=== PATIENT | male | born 1990 | race Caucasian/White ===

== ENCOUNTER 2023-12-28 10:38 | Outpatient (AMB) | payer OTHER, SELFPAY ==
--- NOTE | 2023-12-28 10:59 | A.OFFPC_ITS ---
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 He was last seen by myself at [facility] over the winter and was noted to have a slightly elevated blood pressure, high cholesterol and prediabetes. He states since our last visit he has started intermittent fasting, reducing his alcohol intake and exercising. He states that he has lost about 10 lb. CV: Blood pressure today in the office is 114/84. He states that he is motivated to work out and lose weight. Denies any chest pain, shortness of breath or palpitations. Derm: He does note that on his right lower leg he has had a small, raised scab like lesion that has been there for about a year. It is nontender. He states that it just does not go away and he feels like he should get this checked out. He has also noticed that his scalp is dry and flaky and it has been like this on and off for years. He uses head and shoulders as needed. His did have a miscarriage yesterday at 8-9 weeks. He states that this has been a little stressful. They just started trying to have children. 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 1. Little interest or pleasure in doing things: not at all 2. Feeling down, depressed, or hopeless: not at all 3. Trouble falling or staying asleep, or sleeping too much: not at all 4. Feeling tired or having little energy: not at all 5. Poor appetite or overeating: not at all 6. Feeling bad about yourself - or that you are a failure or have let yourself or your family down: not at all 7. Trouble concentrating on things, such as reading the newspaper or watching television: not at all 8. Moving or speaking so slowly that other people could have noticed. Or the opposite - being so fidgety or restless that you have been moving around a lot more than usual: not at all 9. Thoughts that you would be better off or of hurting yourself in some way: not at all Total score: 0 Depression Screening Interpretation: Negative Depression Screening Done: Yes 63452 - PHQ-9 Billing: Yes Source: Developed by Drs. Carmelo Gann, Vale Freeman, Jose Alberto De Oliveira and colleagues, with an educational jay jay from [employer]. Thrive Questionnaire Date Thrive assessed: 12/28/23 I am a: Patient What is your living situation today?: I have a steady place to live Within the past 12 months, did the food you bought not last and you didn't have the money to get more?: Never true Within the past 12 months, did you worry whether your food would run out before you got money to buy more?: Never true Do you have trouble paying for medicines?: No Do you have trouble getting transportation to medical appointments?: No Do you have trouble paying your heating and electricity bill?: No Do you have trouble taking care of your child, family member or friend?: No Do you have trouble with day-to-day activities such as bathing, preparing meals, shopping, managing finances, etc.?: No Are you currently unemployed and looking for a job?: No Are you interested in more education?: No Please select the resources that you would like help with: None Currently or been in a relationship where the following occur: No concerns reported THRIVE Score: 0 AUDIT C Alcohol Use Questionnaire (AUDIT-C) 1. How often do you have a drink containing alcohol?: 2-3 times a week 2. How many drinks containing alcohol do you have on a typical day when you are drinking?: 3 or 4 3. How often do you have six or more drinks on one occasion?: Less than monthly Total Score: 5 YE-7 AMB Questionnaire YE-7 Date YE - 7 assessed: 12/28/23 Feeling nervous, anxious, or on edge: 0 = Not at all Not being able to stop or control worryin = Not at all Worrying too much about different things: 0 = Not at all Trouble relaxin = Not at all Being so restless that it is hard to sit still: 0 = Not at all Becoming easily annoyed or irritable: 0 = Not at all Feeling afraid as if something awful might happen: 0 = Not at all Total YE-7 score (0-4 normal; 5-9 mild; 10-14 moderate; 15-21 severe): 0 Source: Developed by Drs. Carmelo Gann, Vale Freeman, Jose Alberto De Oliveira and colleagues, with an educational jay jay from [employer]. YE-7 Assessment Billing YE-7 Assessment Tool: YE-7 Assessment 64868 Physical exam (Primary Care) Vital Signs: Last Vital Signs Temp 98.6 F 12/28/23 11:06 Pulse 67 12/28/23 11:06 Resp 16 12/28/23 11:06 BP 114/84 12/28/23 11:06 Pulse Ox 98 12/28/23 11:06 Oxygen Delivery Method Room Air 12/28/23 11:06 BMI result Body Mass Index 35.9 Tobacco/Smoking Status: Tobacco use Status Tobacco use date assessed 12/28/23 12/28/23 11:02 Patient Tobacco Use Status Never used Tobacco 12/28/23 11:12 e-Cigarette/Vaping Use Never Used 12/28/23 11:12 PHQ-9: PHQ-9 Score PHQ-9: Total score 0 12/28/23 11:16 Depression Screening Interpretation: Negative Thrive Assessment: Date of Thrive Assessment Date Thrive assessed 12/28/23 12/28/23 11:15 Currently or been in a relationship where the following occur: No concerns reported Const Orientation/consciousness: patient oriented x3 HENMT Ears: hearing grossly normal bilaterally Neck Neck: No prominent dorsocervical fat pad Thyroid: Thyroid normal Lymphatic: no lymphadenopathy noted Resp Auscultation: clear to auscultation bilaterally Cardio Rate: regular rate Rhythm: regular rhythm Heart sounds: S1 normal heart sound present and S2 normal heart sound present GI Inspection: Yes normal to inspection Palpation (GI): Soft to palpation and Other GI palpation findings present (nontender, no cva tenderness) Auscultation: normoactive bowel sounds Rectal Exam - Male: Yes deferred Skin Other: There is a raised, flesh-colored, papular lesion noted a right anterior lower leg that is approximately 3 mm x 3 mL with a scab on top. Scalp is dry and flaky. Neuro General: patient oriented x3, gait normal and no focal motor deficits Coding Level of Care Code Est Pt Level 4 (66850) Complex EM visit Add On G2211 Diagnoses Prehypertension R03.0 Dyslipidemia E78.5 Elevated LFTs R79.89 Hyperglycemia R73.9 Seborrheic dermatitis of scalp L21.9 Skin lesion of right leg L98.9 Additional Codes YE-7 Assessment Billing - YE-7 Assessment Tool: YE-7 Assessment [id number] ([id number]) Assessment & Plan Assessment & Plan (1) Prehypertension: Code(s): R03.0 - Elevated blood-pressure reading, without diagnosis of hypertension Plan: Blood pressure WNL. Continue with diet and weight loss (2) Dyslipidemia: Code(s): E78.5 - Hyperlipidemia, unspecified Category: Medical Plan: We will check today (3) Elevated LFTs: Code(s): R79.89 - Other specified abnormal findings of blood chemistry Category: Medical Plan: As above (4) Hyperglycemia: Code(s): R73.9 - Hyperglycemia, unspecified Category: Medical Plan: A1c ordered (5) Seborrheic dermatitis of scalp: Code(s): L21.9 - Seborrheic dermatitis, unspecified Category: Medical Plan: We will try ketoconazole shampoo. Referral to derm (6) Skin lesion of right leg: Code(s): L98.9 - Disorder of the skin and subcutaneous tissue, unspecified Category: Medical Plan: As above. Phone number provided to [facility] Orders: Orders Comprehensive [place]. Panel Fast Today E78.5 - Hyperlipidemia, unspecified, R73.9 - Hyperglycemia, unspecified, R79.89 - Other specified abnormal findings of blood chemistry TSH reflex Free T4 Today E78.5 - Hyperlipidemia, unspecified, R73.9 - Hyperglycemia, unspecified, R79.89 - Other specified abnormal findings of blood chemistry Comprehensive Met. Panel Today E78.5 - Hyperlipidemia, unspecified, R73.9 - Hyperglycemia, unspecified, R79.89 - Other specified abnormal findings of blood chemistry Lipid Panel Today E78.5 - Hyperlipidemia, unspecified, R73.9 - Hyperglycemia, unspecified, R79.89 - Other specified abnormal findings of blood chemistry Hemoglobin A1c Today E78.5 - Hyperlipidemia, unspecified, R73.9 - Hyperglycemia, unspecified, R79.89 - Other specified abnormal findings of blood chemistry Referrals Dermatology Referral L98.9 - Disorder of the skin and subcutaneous tissue, unspecified Medications: New ketoconazole 2% 1 appl topical 3XW 120 mL 2RF
[2023-12-28 11:06] VITALS: BP 114/84; PULSE 67; RESP 16; TEMP 37; O2SAT 98; BMI 35.9
== END 2023-12-28 11:34 | disposition home or self-care (01) ==
PROVIDERS: Visit Provider Physician Assistant
DX: R03.0 Elevated blood-pressure reading, without diagnosis of hypertension (principal); E78.5 Hyperlipidemia, unspecified; R73.9 Hyperglycemia, unspecified; L21.9 Seborrheic dermatitis, unspecified; L98.9 Disorder of the skin and subcutaneous tissue, unspecified

== ENCOUNTER → 2023-12-28 10:38 | Outpatient (BNVA) | payer OTHER, SELFPAY | PROVIDERS: Visit Provider Physician Assistant | DX: R03.0 Elevated blood-pressure reading, without diagnosis of hypertension (principal); E78.5 Hyperlipidemia, unspecified; R79.89 Other specified abnormal findings of blood chemistry; R73.9 Hyperglycemia, unspecified; L21.9 Seborrheic dermatitis, unspecified; L98.9 Disorder of the skin and subcutaneous tissue, unspecified | CPT/HCPCS: 96127 ==

== ENCOUNTER 2023-12-28 11:47 | Outpatient (REF) | payer OTHER, SELFPAY ==
[2023-12-28 14:52] LABS: Estimated Average Glucose 108 mg/dL; Hemoglobin A1C 139.9029 umol/L; Hemoglobin A1c % 5.4 % (<6.0); Total Hemoglobin (HGBA1C) 3967.9445 umol/L
[2023-12-28 14:55] LABS: Alanine Aminotransferase 59 U/L (0-40); Albumin Level 4.4 g/dL (3.5-5.0); Alkaline Phosphatase 67 U/L (39-117); Anion Gap 11 (12-20); Aspartate Amino Transferase 33 U/L (5-37); Bilirubin Total 0.5 mg/dL (0.0-1.0); Blood Urea Nitrogen 13 mg/dL (9-16); Calcium 9.9 mg/dL (8.4-10.2); Carbon Dioxide 27 mmol/L (22-29); Chloride 107 mmol/L (96-108); Cholesterol 229 mg/dL (<200); Estimated Glomerular Filt Rate > 60; Glucose Fasting 91 mg/dL (60-99); HDL Cholesterol 37 mg/dL (>40); LDL Cholesterol Calculated 148 mg/dL (<100); Potassium 4.2 mmol/L (3.3-5.1); Sodium 141 mmol/L (135-145); Total Protein 7.5 g/dL (6.5-8.0); Triglycerides 221 mg/dL (<150)
[2023-12-28 15:10] LABS: TSH reflex Free T4 1.07 uIU/mL (0.32-4.0)
== END 2023-12-28 11:48 | disposition home or self-care (01) ==
LOC: HO.WFDLDS 11:47
PROVIDERS: Visit Provider Physician Assistant
DX: E78.5 Hyperlipidemia, unspecified (principal); R73.9 Hyperglycemia, unspecified
CPT/HCPCS: 36415; 80053; 80061; 83036; 84443

== ENCOUNTER 2024-01-11 08:52 | Outpatient (REF) | payer OTHER, SELFPAY | END 2024-01-11 08:53 | disposition home or self-care (01) | LOC: HO.US 08:52 | PROVIDERS: PCP Physician Assistant; Visit Provider Physician Assistant | DX: R79.89 Other specified abnormal findings of blood chemistry (principal); E78.5 Hyperlipidemia, unspecified | CPT/HCPCS: 76700 ==